=== PATIENT | male | born 1950 | race Caucasian/White ===

== ENCOUNTER 2016-10-31 05:39 | Emergency (ER) | payer MEDICARE, OTHER ==
[~2016-10-31 05:39] MED LIST: AMLO10TA3 PO; ASPI-973 PO; CARV3.122 PO; CARV6.252 PO; CHOL500011 PO; CIPR-198 PO; FURO-128 PO; INSU100V28 SUBQ; INSU100V7 SUBQ; LEVO50TA6 PO; LOSA50TA37 PO; MULT1CAP33 PO; NIAC500C3 PO; POTA20TA16 PO; UBID1CAP58 PO
[2016-10-31 05:53] VITALS: BP 171/64; PULSE 59; RESP 12; O2SAT 100
[2016-10-31 06:41] LABS: TROPONIN T 0.01 ug/L (0.0-0.011)
[2016-10-31 06:47] LABS: BASOPHILS % (AUTO) 0.3 % (0-3); EOSINOPHILS % (AUTO) 5.4 % (0-5); Mean Corpuscular Hemoglobin 25.4 pg (27.0-35.0); Mean Corpuscular Volume 80.2 fL (81-100); NEUTROPHILS % (AUTO) 62.9 % (40-74); Platelet Count 376 bil/L (150-400)
[2016-10-31] MEDS ORDERED: 0.9% Sodium Chloride 1,000 ML IV ONE (06:50)
[2016-10-31 06:52] VITALS: BP 187/74; PULSE 65
[2016-10-31 06:55] LABS: Magnesium 2.3 mg/dL (1.6-2.6)
[2016-10-31] MEDS ORDERED: LORA1TAB PO (07:28)
--- NOTE | 2016-10-31 07:33 | ED.REPORT ---
HPI-Dyspnea / Wheezing Date of Service Oct 31, 2016 ED Provider: Krishna Nguyen MD 66yoM with history of CAD/OH with three angioplasty stents, DM with vascular complications including recent BKA of RLE, and ATN due to iodine contrast presents with shortness of breath, a sense of impending doom, and diaphoresis. The patient states that early this morning he was thinking about his recent health when he became acutely SOB and called an ambulance. When the ambulance arrived the patient states he had a wave or relief and felt like crying. The patient states that he has had one episode like this in the past when his mom was sick which resolved without issue. The patient denies lower extremity pain or swelling. He denies chest pain ever. 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 HE saw his vascular surgeon yesterday who stated that he was doing well. The patient takes a baby aspirin daily. Nursing Notes Stated Complaint: ANXIETY Chief Complaint: Chest Pain Nursing Notes Reviewed: Yes Allergies: Coded Allergies: enoxaparin (Verified Allergy, Severe, thrombocytopenia, 04/13/15) ROM Inhibitors (Verified Allergy, Unknown, 04/13/15) Heparin Analogues (Verified Allergy, Unknown, 04/13/15) codeine (Verified Adverse Reaction, Severe, Nausea,Vomiting, 04/13/15) lorazepam (Verified Adverse Reaction, Severe, Agitation, 04/13/15) Beta-Blockers (Beta-Adrenergic Bloc (Verified Adverse Reaction, Unknown, NAUSEA, 04/13/15) Penicillins (Verified Adverse Reaction, Unknown, 04/13/15) Sulfa (Sulfonamide Antibiotics) (Verified Adverse Reaction, Unknown, ) Scheduled Amlodipine (Amlodipine) 10 Mg Tablet 10 MG PO DAILY Aspirin (Aspirin) 81 Mg Tablet 81 MG PO DAILY Carvedilol (Carvedilol) 3.125 Mg Tablet 3.125 MG PO am Carvedilol (Carvedilol) 6.25 Mg Tablet 6.25 MG PO HS Cholecalciferol (Vitamin D3) (Vitamin D3) 5,000 Unit Tablet 5,000 UNIT PO DAILY Ciprofloxacin (Ciprofloxacin) 500 Mg Tablet 500 MG PO BID Furosemide (Lasix) 40 Mg Tablet 40 MG PO BID Insulin Glargine (Lantus U100 Insulin Vial) 100 Unit/Ml Vial 25 UNIT SUBQ DAILY Insulin Regular, Human (HUMulin-R U100 Insulin Vial) 100 Unit/1 Ml Vial 7 UNIT SUBQ TIDAC Levothyroxine (Levothyroxine) 50 Mcg Tablet 50 MCG PO DAILY Losartan Potassium (Losartan Potassium) 50 Mg Tablet 50 MG PO DAILY Niacin (Niacin) 500 Mg Capsule.er 500 MG PO DAILY Potassium Chloride (Potassium Chloride) 20 Meq Tab.er.prt 20 MEQ PO DAILY TAKE WITH FOOD Ubidecarenone/Vitamin E Mixed (Zmb17-Ffg E 100 mg-10 Unit Sfg) 100 Mg-10 Unit Capsule 1 EACH PO BID Scheduled PRN Lorazepam (Lorazepam) 1 Mg Tablet 1 MG PO TID PRN PRN For Anxiety Multivitamin (Multivitamins) 1 Each Capsule 1 EACH PO DAILY PRN PRN nacin General Time Seen by MD: 06:01 Chief Complaint Shortness of breath, Other (impending doom) Hx Obtained From: Patient, Other family... (twin sister) Arrived By: Ambulance Caused by: Spontaneous Onset Occurred: 1 - 4 hours ago Context of Onset: Anxiety Symptom Duration: 16 - 30 minutes Location: : None Recent Healthcare: Recent doctor visit, Recent hospitalization Similar Sx Previous: No Risk Factors Well's Criteria for PE Immob/surg past 4wk (1.5) Well's PE Score: 0-2 pts (low risk 3.6%) Past Medical History Past Medical History Notes: recent echo in [place]: EF of 44% Past Medical History 1. Acute coronary syndrome, September 17, 2011 with non-ST elevation myocardial infarction. The patient had placement of 2 stents in [place] on October 24, 2011. Apparently these were placed in the occluded vessels but I am not sure of that. Ischemic cardiomyopathy. Last ejection fraction that we have was from October 09, 2011 showing ejection fraction 30% to 35%. This is chronic systolic congestive heart failure. Left ventricular mural thrombus. Heparin induced thrombocytopenia. Acute tubular necrosis secondary to iodinated contrast dye. Diabetic retinopathy status post laser treatment. Diabetic neuropathy with bilateral foot drop. Reports: Diabetes mellitus, Hypertension Past Surgical History Cardiac stenting x3 in 2011 right below knee amputation due to DM in 2017 Smoking History Never Smoker Social History Alcohol Use: Denies alcohol use Drug Use: Denies drug use Other Social History: Good social support, Local resident Occupation automotive parts coordinator Ambulatory Status Independent Review of Systems Basic Review of Systems Eyes: Vision NL, No discharge GI: No abdominal pain, No anorexia, No nausea, No vomiting : No dysuria, No frequency Hematologic: No bleeding, No bruising Endocrine: No cold intolerance, No heat intolerance, No weight gain, No weight loss Neurologic: NL mental status, No weakness, No numbness Psychiatric: Normal thought content Constitutional: Denies: Chills, Fever Ears / Nose / Throat: Denies: Hearing loss bilateral, Nasal congestion, Sore throat Respiratory: Denies: Dyspnea on exertion, Hemoptysis, Non-productive cough Cardiovascular: Denies: Chest pain, Dyspnea on exertion, Edema Musculoskeletal: Denies: Extremity pain, Extremity swelling Skin: Denies Itching, Denies Rash, Denies Swelling, Denies Unexplained bruises Allergy / Immune: Denies: Hives, Itching Complete sys rev & neg: except as marked. Physical Exam Initial Vital Signs Vital Signs (First) Date Time Temp Pulse Resp B/P Pulse Ox O2 Delivery O2 Flow Rate FiO2 10/31/16 05:53 36.4 59 12 171/64 100 Room Air Initial VS: Reviewed Head / Eyes: Atraumatic, Normocephalic, PERRL ENT: Mucous membranes moist, Conjunctiva normal, No scleral icterus Abdomen / GI: Soft, Non-tender, No guarding, No rebound, No distention Back: No CVA tenderness Lymphatic: No lymphadenopathy Extremities: Neuro intact, No swelling, No tenderness Skin: Warm, Dry, No cyanosis Neurologic: Alert, Oriented, Nonfocal Psychiatric: Mood/affect normal, Behavior normal, Normal thought content General/Constitutional: Awake, Alert, No acute distress, Cooperative Neck: Atraumatic, Supple, No meningismus, Full range of motion, No swelling, Non-tender, No masses Respiratory / Chest: Breath sounds NL, Breath sounds = bilat, No respiratory distress, No rales, No rhonchi, No wheezing, No retractions, No stridor Cardiovascular: Heart rate NL, Regular rhythm, Heart sounds NL, Peripheral circulation NL Abdomen: Soft, Non-tender, No guarding, No rebound Lower Extremity / Pelvis / MS: No edema (in LLE) Right Leg / Calf: Positive: Deformity distal (BKA) Patient had a BKA in [place] with casting extending from remaining tibia to mid femur. LLE is normal appearing without edema, erythema, neurovascularly intact. Skin: Color NL, No rash, Warm, Dry, Turgor NL Head / Eyes: Normocephalic, PERRL Upper Extremity / MS: Atraumatic, Inspection NL, No swelling, Non-tender, No erythema, No deformity, Neurologic intact, Vascular intact, No edema Psychiatric: Affect NL, Mood NL, Cognitive function NL, Judgment/insight NL, Thought content NL Interpretation & Diagnostics Lab Results Interpretation Result Diagram: 10/31/16 0610 10/31/16 0610 Test 10/31/16 06:10 White Blood Count 6.1th/mm3 (3.8-10.1) Red Blood Count 4.05mil/mm3 (4.40-5.80) Hemoglobin 10.3g/dL (13.8-17.2) Hematocrit 32.5% (41.0-50.0) Mean Corpuscular Volume 80.2fL (81-100) Mean Corpuscular Hemoglobin 25.4pg (27.0-35.0) Mean Corpuscular Hemoglobin Concent 31.7% (32.0-37.0) Red Cell Distribution Width 16.6% (12.3-15.4) Platelet Count 376bil/L (150-400) Neutrophils (%) (Auto) 62.9% (40-74) Lymphocytes (%) (Auto) 20.2% (14-46) Monocytes (%) (Auto) 11.0% (4-12) Eosinophils (%) (Auto) 5.4% (0-5) Basophils (%) (Auto) 0.3% (0-3) D-Dimer 1.2mg/L (<0.50) Sodium Level 138mEq/L (134-144) Potassium Level 4.9mEq/L (3.5-5.2) Chloride Level 98mEq/L (97-108) Carbon Dioxide Level 27mmol/L (18-29) Blood Urea Nitrogen 32mg/dL (8-27) Creatinine 0.96mg/dL (0.76-1.27) Estimat Glomerular Filtration Rate 84mL/min (>59) Glucose Level 122mg/dL (60-99) Calcium Level 8.8mg/dL (8.5-10.1) Magnesium Level 2.3mg/dL (1.6-2.6) Total Bilirubin 0.4mg/dL (0.0-1.2) Aspartate Amino Transf (AST/SGOT) 24U/L (0-50) Alanine Aminotransferase (ALT/SGPT) 23U/L (0-44) Alkaline Phosphatase 133U/L (25-160) Troponin T 0.010ug/L (0.0-0.011) Total Protein 6.2g/dL (6.4-8.4) Albumin 3.9g/dL (3.4-5.0) [place] Top Tube Received (Received) ECG Interpretation Interpreted by: ED physician Normal ECG Interpretation: Normal sinus rhythm, No acute ischemic changes Rhythm / Conduction: QRS complex - short X-Ray Chest Interpretation Chest Xray Interpretation: No acute cardiopulmonary processes Interpretation / Wet Read by: Interpret - ED physician Re-Eval/Medical Decision Med Decision/Clinical Course 66yoM with risk factors for PE including recent surgery and leg immobilization presents without chest pain, with brief SOB and diaphoresis and impending sense of doom. Physical exam is unremarkable besides the BKA of RLE. Labs show elevated BUN:Cr ratio consistent with dehydration, as well as elevated D-dimer. 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 Patient was seen just yesterday by his vascular surgeon in [place] and given clear bill of health. The patient will be released with a diagnosis of anxiety and given a short prescription for a benzodiazepine with recommendation to return with any recurrence of symptoms. Discharge & Departure Impression: Primary Impression: Anxiety attack Disposition: Home Discharge Condition Condition: Improved Patient Instructions: Generalized Anxiety Disorder (ED) Additional Instructions: After lengthy discussion we have decided to not investigate this further. I believe it is plausible that your symptoms are related to anxiety and not very likely related to deep vein clot or pulmonary embolism. I recommend that you immediately return to the emergency department if he developed chest pain or significant shortness of breath or if you faint. If you experience symptoms that are similar in the coming hours or days, I recommend lorazepam 1 tablet orally to see if this abates the symptoms. We discussed ultrasound of her leg and pulmonary angiography which you have declined. I think this is a reasonable approach at this time. Attending Statement The patient was seen and examined together with Dr. Silva on 10/31/16 and I agree with the history, exam and plan as outlined in the note above. I spent a long time interviewing the patient myself and I am satisfied that the most likely diagnosis is anxiety, as opposed to pulmonary embolism or DVT. His vascular surgeon saw him yesterday in the clinic and was specifically asked about the possibility of DVT which the surgeon felt was exceedingly unlikely. At no point did Mr. Zamarripa have any chest pain or syncope. He is not tachycardic and his symptoms have resolved completely. He had the sensation of anxiety which was similar to an anxiety attack he had many years ago. His Wells criteria score in my opinion is 1.5 putting him in a low risk category. I did not make anything of the elevated d-dimer which I would not have ordered because she is relatively recently postoperative which which I would expect to cause an elevation of d-dimer in and of itself. Krishna Nguyen MD Oct 31, 2016 07:33 Hi Silva DO Oct 31, 2016 07:55
[2016-10-31 07:36] VITALS: BP 179/68; PULSE 59; RESP 12; O2SAT 100
[2016-10-31] MEDS ORDERED: Sodium Chloride LOK Flush 10 mL Syringe IVFLUSH SCH (08:30)
--- NOTE | 2016-10-31 09:01 | DRSVH ---
PROCEDURE: X-RAY CHEST ONE VIEW, PORTABLE ([id number]) INDICATIONS: CP TECHNIQUE: One view of the chest was acquired. COMPARISON: [facility], CR, XR CHEST 2VW, 01/23/2016, 10:30. [facility], CR , CHEST 1VW (PORTABLE), 10/05/2011, 22:36. FINDINGS: Surgical changes and devices: None. Lungs and pleura: No pleural effusions or pneumothorax. Lungs are clear. Mediastinum: Mediastinal contours appear normal. Heart size is normal. Bones and chest wall: No suspicious bony lesions. Overlying soft tissues appear unremarkable. IMPRESSION: No acute cardiopulmonary disease. Dictated by: [facility] Interpreted: Angie Givens MD on 10/31/2016 at 9:00 Transcribed by: KUMAR on 10/31/2016 at 9:01 Approved by: Angie Givens MD, PhD on 10/31/2016 at 17:14
== END 2016-10-31 07:37 | disposition home or self-care (01) ==
LOC: SED 05:39
DX: F41.9 Anxiety disorder, unspecified (principal); I11.0 Hypertensive heart disease with heart failure; E10.59 Type 1 diabetes mellitus with other circulatory complications; I50.22 Chronic systolic (congestive) heart failure; I25.2 Old myocardial infarction; I25.5 Ischemic cardiomyopathy; E10.319 Type 1 diabetes mellitus with unspecified diabetic retinopathy without macular edema; E10.49 Type 1 diabetes mellitus with other diabetic neurological complication; M21.371 Foot drop, right foot; M21.372 Foot drop, left foot; Z95.5 Presence of coronary angioplasty implant and graft; Z79.82 Long term (current) use of aspirin; Z79.4 Long term (current) use of insulin; Z88.0 Allergy status to penicillin; Z88.2 Allergy status to sulfonamides; Z88.5 Allergy status to narcotic agent; Z88.8 Allergy status to other drugs, medicaments and biological substances